=== PATIENT | male | born 1965 | race Caucasian/White ===

== ENCOUNTER → 2020-05-05 13:19 | Outpatient (POV) | payer BC, SELFPAY | PROVIDERS: Visit Provider Dermatology | DX: Z00.00 Encounter for general adult medical examination without abnormal findings (principal) ==

== ENCOUNTER 2021-05-30 07:52 | Outpatient (CLI) | payer BC, SELFPAY ==
[2021-05-30] VITALS (9 sets, daily range): BP systolic 130–141; BP diastolic 79–87; PULSE 71–90; RESP 18; TEMP 36.5–36.6; O2SAT 92–94
== END 2021-05-30 10:30 | disposition home or self-care (01) ==
LOC: INF 07:54
PROVIDERS: PCP Family Medicine; Visit Provider Physician Assistant
DX: U07.1 COVID-19 (principal); Z23 Encounter for immunization
CPT/HCPCS: 96365

== ENCOUNTER → 2022-02-01 13:26 | Outpatient (POV) | payer BC, SELFPAY | PROVIDERS: Visit Provider Dermatology | DX: Z00.00 Encounter for general adult medical examination without abnormal findings (principal) ==

== ENCOUNTER → 2022-12-09 13:08 | Outpatient (CLI) | payer BC, SELFPAY ==
--- NOTE | 2022-12-09 13:20 | US_ITS ---
FINAL REPORT TECHNIQUE: Limited sonographic images of the thyroid were obtained. CLINICAL HISTORY: HYPOTHYROIDISM FINDINGS: The right lobe of the thyroid measures 4.8 x 1.9 x 1.3 cm. No mass or nodule is identified. The left lobe of the thyroid measures 4.7 x 1.6 x 1.4 cm. No mass or nodule is identified. The isthmus measures 0.25 cm. IMPRESSION: Unremarkable thyroid ultrasound. Reviewed, Interpreted and Dictated by Kalen Chowdhury III, MD Transcribed by Jenna King Authenticated and [facility]
== END ==
PROVIDERS: PCP Family Medicine; Visit Provider Family Medicine
DX: E03.9 Hypothyroidism, unspecified (principal)
CPT/HCPCS: 76536